=== PATIENT | female | born 1975 | race Caucasian/White ===

== ENCOUNTER 2018-11-25 14:09 | Emergency (ER) | payer MEDICAID ==
[2018-11-25] MEDS ORDERED: Lactated Ringers 1,000 ML IV ONE (15:37)
[2018-11-25] MEDS ORDERED: Ketorolac 30 MG/ML SDV IVPUSH ONE (15:37)
[2018-11-25] MEDS ORDERED: Sodium Chloride 0.9% 10 ML Syringe FLUSH PRN (15:37)
[2018-11-25] MEDS ORDERED: diphenhydrAMINE 50 MG/ML SDV IVPUSH ONE (15:37)
--- NOTE | 2018-11-25 15:40 | EDM.PDOC ---
ED HPI GENERAL MEDICAL PROBLEM - General Chief Complaint: Headache Stated Complaint: HEADACHE Time Seen by Provider: 11/25/18 15:34 Source of Information: Reports: Patient, RN Notes Reviewed History Limitations: Reports: No Limitations - History of Present Illness INITIAL COMMENTS - FREE TEXT/NARRATIVE: 43-year-old female presents emergency department today complaint of migraine type headache, she has a long history of migraines she states this one is typical for her is been going on for about 24 hours she did try her Imitrex but believes she may have taken too late. She has photophobia but no nausea vomiting. Headache Pain Score (Numeric/FACES): 7 - Related Data Allergies Allergy/AdvReac Type Severity Reaction Status Date / Time latex Allergy Blisters Verified 11/25/18 15:26 Sulfa (Sulfonamide Allergy Hives Verified 11/25/18 15:26 Antibiotics) Home Meds: Home Meds Multivitamin [Multivitamins] 1 tab PO DAILY 10/07/15 [History] Naproxen [Take Home: Naproxen 500 MG, 4 Tab Pack] 500 mg PO BID 10/07/15 [ History] Triamterene/Hydrochlorothiazid [Triamterene-HCTZ 37.5-25 MG] 1 tab PO DAILY PRN 10/07/15 [History] guaiFEN/Phenyleph/Acetaminophn [Tylenol Cold Head Congest Cplt] 1 tab PO ASDIRECTED 10/07/15 [History] SUMAtriptan Succinate [Imitrex] 100 mg PO DAILY PRN 11/25/18 [History] Past Medical History Cardiovascular History: Reports: Other (See Below) Other Cardiovascular History: pedal edema after surgery Gastrointestinal History: Reports: Hiatal Hernia MET[employer]ATING History: Reports: Dysfunctional Uterine Bleeding, Musculoskeletal History: Reports: Fracture Neurological History: Reports: Migraines - Infectious Disease History Infectious Disease History: Reports: Chicken Pox - Past Surgical History HEENT Surgical History: Reports: Other (See Below) Other HEENT Surgeries/Procedures: tmj surgery x2. Female Surgical History: Reports: Breast Reduction, Section, Hysterectomy Musculoskeletal Surgical History: Reports: Shoulder Surgery Social & Family History - Tobacco Use Smoking Status *Q: Never Smoker - Recreational Drug Use Recreational Drug Use: No ED ROS GENERAL - Review of Systems Review Of Systems: See Below Constitutional: Reports: No Symptoms HEENT: Reports: Other (Photophobia) Respiratory: Reports: No Symptoms Cardiovascular: Reports: No Symptoms GI/Abdominal: Reports: No Symptoms Neurological: Reports: Headache - Physical Exam Exam: See Below Exam Limited By: No Limitations General Appearance: Alert, Mild Distress Eye Exam: Bilateral Eye: Normal Fundi, Normal Inspection, PERRL Respiratory/Chest: No Respiratory Distress Course - Vital Signs Last Recorded V/S: Last Vital Signs Temp 95.5 F 11/25/18 15:26 Pulse 66 11/25/18 16:34 Resp 18 11/25/18 16:34 BP 140/72 11/25/18 16:34 Pulse Ox 99 11/25/18 16:34 - Orders/Labs/Meds Orders: Active Orders 24 hr Category Date Time Status Peripheral IV Care [RC] . DIRECTED Care 11/25/18 15:37 Active Sodium Chloride 0.9% [Saline Flush] Med 11/25/18 15:37 Active 10 ml FLUSH ASDIRECTED PRN Peripheral IV Insertion Adult [OM.PC] Urgent Oth 11/25/18 15:37 Ordered Medication Orders Sodium Chloride (Saline Flush) 10 ml FLUSH ASDIRECTED PRN PRN Reason: Keep Vein Open Last Admin: 11/25/18 16:11 Dose: 10 ml Meds: Medications Generic Name Dose Route Start Last Admin Trade Name Freq PRN Reason Stop Dose Admin Sodium Chloride 10 ml 11/25/18 15:37 11/25/18 16:11 Saline Flush FLUSH 10 ml ASDIRECTED PRN Administration Keep Vein Open Discontinued Medications Generic Name Dose Route Start Last Admin Trade Name Freq PRN Reason Stop Dose Admin Diphenhydramine HCl 50 mg 11/25/18 15:37 11/25/18 16:10 Benadryl IVPUSH 11/25/18 15:38 50 mg ONETIME ONE Administration Lactated Ringer's 1,000 mls @ 999 mls/hr 11/25/18 15:37 11/25/18 16:05 Ringers, Lactated IV 11/25/18 16:37 999 mls/hr BOLUS ONE Administration Ketorolac Tromethamine 30 mg 11/25/18 15:37 11/25/18 16:08 Toradol IVPUSH 11/25/18 15:38 30 mg ONETIME ONE Administration Departure - Departure Time of Disposition: 17:02 Disposition: Home, Self-Care 01 Condition: Fair Clinical Impression: Migraine - Discharge Information Referrals: PCP,None [Primary Care Provider] - Forms: ED Department Discharge Additional Instructions: Continue your regular medications, Please followup with your primary care provider in 3-5 days if not better, please call return to the emergency department with worsening of symptoms. - My Orders Last 24 Hours: My Active Orders 11/25/18 15:37 Peripheral IV Care [RC] . DIRECTED Sodium Chloride 0.9% [Saline Flush] 10 ml FLUSH ASDIRECTED PRN Peripheral IV Insertion Adult [OM.PC] Urgent - Assessment/Plan Last 24 Hours: My Active Orders 11/25/18 15:37 Peripheral IV Care [RC] . DIRECTED Sodium Chloride 0.9% [Saline Flush] 10 ml FLUSH ASDIRECTED PRN Peripheral IV Insertion Adult [OM.PC] Urgent Plan: Assessment Acuity = acute Site and laterality = migraine type headache Etiology = unclear etiology Manifestations = photophobia Location of injury = Home Lab values = none Plan Good relief combination Toradol Benadryl plan is to discharge home follow-up primary care 3-5 days if no improvement This note was dictated using [employer] voice recognition software please call with any questions on syntax or grammar.
[2018-11-25 16:35] VITALS: BP 140/72
== END 2018-11-25 17:12 | disposition home or self-care (01) ==
LOC: JP.ED 14:09
DX: G43.909 Migraine, unspecified, not intractable, without status migrainosus (principal); Z91.040 Latex allergy status; Z88.2 Allergy status to sulfonamides
CPT/HCPCS: 96361; 96374; 96375; 99284-25; J1200; J1885; J7120

== ENCOUNTER 2023-02-26 07:53 | Day surgery (SDC) | payer MEDICAID ==
[2023-02-26] MEDS ORDERED: Lactated Ringers 1,000 ML IV SCH (08:15)
[2023-02-26] MEDS ORDERED: fentaNYL 50 MCG/ML SDV ONE (08:40)
[2023-02-26] MEDS ORDERED: Propofol 200 MG/20 ML SDV ONE (08:40)
[2023-02-26] MEDS ORDERED: Midazolam 1 MG/ML 2 ML SDV ONE (08:40)
[2023-02-26 10:12] VITALS: BP 130/80; PULSE 62
== END 2023-02-26 10:19 | disposition home or self-care (01) ==
LOC: JP.SDS 07:53
PROVIDERS: ATTEND Family Medicine
DX: Z12.11 Encounter for screening for malignant neoplasm of colon (principal); K63.5 Polyp of colon; Z88.2 Allergy status to sulfonamides; Z88.8 Allergy status to other drugs, medicaments and biological substances
CPT/HCPCS: 45380; 88305; J2250; J2704; J3010; J7120